=== PATIENT | male | born 1975 | race Caucasian/White ===

== ENCOUNTER 2024-02-25 22:41 | Emergency (ER) | payer OTHER, SELFPAY ==
[2024-02-25 22:46] VITALS: BP 136/79; PULSE 77; RESP 16; TEMP 36.6; O2SAT 97; BMI 29.0
--- NOTE | 2024-02-25 22:46 | ED.PSYCH ---
HPI - Psych <Paty Cummins MD - Last Filed: 02/26/24 18:17> General Chief Complaint: Psychiatric Symptoms Stated Complaint: DIOGENES Time Seen by Provider: 02/25/24 22:42 History of Present Illness HPI Narrative: 48-year-old male presents with law enforcement for psychiatric evaluation under DIOGENES. History is limited and mostly provided per law enforcement as patient does not want to provide any history and states ?I just do not want to talk about it?. Law enforcement states that for the last 3 days [place] has [place]. This evening he texted multiple people that he was going [place] to kill himself. When they arrived at the bridge they found him hanging off the side of the bridge. They were able to get him to safety. Patient stated that he wanted to drive himself to the ER, however based on patient's condition law enforcement decided to bring him in under DIOGENES. Patient states ?I just want to go home?. He does not want to go to psychiatric facilities at this time. He refuses to answer when asked if he still wants to harm himself. Related Data Home Medications Medication Instructions Recorded Confirmed bupropion HCl 150 mg 24 hr tablet, 300 mg PO DAILY 02/26/24 02/26/24 extended release losartan 100 mg tablet 100 mg PO DAILY 02/26/24 02/26/24 lurasidone 40 mg tablet 40 mg PO DAILY 02/26/24 02/26/24 metformin 500 mg tablet,extended 500 mg PO DAILY 02/26/24 02/26/24 release 24 hr methylphenidate HCl 27 mg 27 mg PO QAM 02/26/24 02/26/24 tablet,extended release 24 hr modafinil 200 mg tablet 400 mg PO DAILY 02/26/24 02/26/24 propranolol 10 mg tablet 10 mg PO DAILY 02/26/24 02/26/24 quetiapine 100 mg tablet 100 mg PO DAILY 02/26/24 02/26/24 rosuvastatin 10 mg tablet 10 mg PO ONCE PM 02/26/24 02/26/24 Allergies Allergy/AdvReac Type Severity Reaction Status Date / Time No Known Drug Allergies Allergy Verified 02/25/24 22:58 Exam <Paty Cummins MD - Last Filed: 02/26/24 18:17> Initial Vital Signs Initial Vital Signs: Vital Signs Temperature 97.9 F 02/25/24 22:46 Pulse Rate 77 02/25/24 22:46 Respiratory Rate 16 02/25/24 22:46 Blood Pressure 136/79 02/25/24 22:46 Pulse Oximetry 97 02/25/24 22:46 Oxygen Delivery Method Room Air 02/25/24 22:46 Const: Awake, alert, no acute distress, nontoxic appearing Cardiac: regular rate, regular rhythm RESP: unlabored, clear bilaterally, no wheezing Skin: Warm, Dry, intact, no rashes Neuro: AO x3, CN II-XII grossly intact, moves all extremities Psych: Flat affect, poor eye contact, suicidal (per reports of law enforcement). <Noe Womack MD - Last Filed: 02/26/24 18:55> Initial Vital Signs Initial Vital Signs: Vital Signs Temperature 97.9 F 02/25/24 22:46 Pulse Rate 77 02/25/24 22:46 Respiratory Rate 16 02/25/24 22:46 Blood Pressure 136/79 02/25/24 22:46 Pulse Oximetry 97 02/25/24 22:46 Oxygen Delivery Method Room Air 02/25/24 22:46 Course <Paty Cummins MD - Last Filed: 02/26/24 18:17> Orders Ordered: Discontinued Medications Metformin HCl (Metformin Hcl 500 Mg Tablet) 500 mg PO NOW ONE Stop: 02/26/24 01:42 Last Admin: 02/26/24 01:55 Dose: 500 mg Documented By: JOHN Quetiapine Fumarate (Quetiapine 25 Mg Tablet) 100 mg PO NOW ONE Stop: 02/26/24 01:41 Last Admin: 02/26/24 01:55 Dose: 100 mg Documented By: JOHN Vital Signs Vital signs: Vital Signs - 8 hr 02/26/24 13:19 Pulse Rate 94 H Respiratory Rate 19 Blood Pressure 126/70 Pulse Oximetry 98 Oxygen Delivery Method Room Air <Noe Womack MD - Last Filed: 02/26/24 18:55> Orders Ordered: Discontinued Medications Metformin HCl (Metformin Hcl 500 Mg Tablet) 500 mg PO NOW ONE Stop: 02/26/24 01:42 Last Admin: 02/26/24 01:55 Dose: 500 mg Documented By: JOHN Quetiapine Fumarate (Quetiapine 25 Mg Tablet) 100 mg PO NOW ONE Stop: 02/26/24 01:41 Last Admin: 02/26/24 01:55 Dose: 100 mg Documented By: HNG Vital Signs Vital signs: Vital Signs - 8 hr 02/26/24 13:19 Pulse Rate 94 H Respiratory Rate 19 Blood Pressure 126/70 Pulse Oximetry 98 Oxygen Delivery Method Room Air MDM - Psych <Paty Cummins MD - Last Filed: 02/26/24 18:17> Lab Data 02/25/24 22:55 02/25/24 22:55 Labs: Lab Results 02/25/24 02/25/24 02/26/24 Range/Units 22:50 22:55 04:48 WBC 8.0 (4.5-11.0) X10^3/uL RBC 5.26 (4.5-5.9) X10^6/uL Hgb 15.5 (13.5-17.5) g/dL Hct 46.2 (41-53) % MCV 87.7 (80-100) fL MCH 29.5 (26-34) PG MCHC 33.6 (30-36) % RDW 13.0 (11.6-14.8) % Plt Count 252 (150-400) X10^3/uL Neut % (Auto) 59.5 (50-75) % Lymph % (Auto) 24.2 L (25-40) % [place] % (Auto) 12.6 (3-14) % Eos % (Auto) 2.9 (2-4) % Baso % (Auto) 0.8 (0-2) % Neut # (Auto) 4800 (9530-7645) /uL Lymph # (Auto) 1900 (4681-6131) /uL [place] # (Auto) 1000 H (0-900) /uL Eos # (Auto) 200 (0-450) /uL Baso # (Auto) 100 (0-100) /uL Sodium 139 (137-145) mmol/L Potassium 4.1 (3.4-5.1) mmol/L Chloride 105 (98-107) mmol/L Carbon Dioxide 26 (22-32) mmol/L BUN 20 (9-20) mg/dL Creatinine 1.21 (0.66-1.25) mg/dL Estimated GFR > 60 (>60) mL/min BUN/Creatinine Ratio 16.5 (6-22) Glucose 120 H (70-100) mg/dL Calcium 9.6 (8.4-10.2) mg/dL Total Bilirubin 0.7 (0.2-1.3) mg/dL AST 33 (17-59) IU/L ALT 23 (<50) IU/L Alkaline Phosphatase 82 (38-126) U/L Total Creatine Kinase 150 (55-170) U/L Troponin I < 0.012 (0.01-0.034) ng/mL Total Protein 7.5 (6.3-8.2) g/dL Albumin 4.5 (3.5-5.0) g/dL Globulin 3.0 (1.7-4.1) g/dL Albumin/Globulin Ratio 1.5 (1.0-2.8) Urine Color Yellow Urine Appearance Clear Urine pH 5.5 (4.5-8.0) Ur Specific [place] 1.025 (1.000-1.035) Urine Protein Negative (Negative) Urine Glucose (UA) Trace H (Negative) g/dL Urine Ketones Trace H (NEGATIVE) Urine Occult Blood Negative (Negative) Urine Nitrate Negative (Negative) Urine Bilirubin Negative (NEGATIVE) Urine Urobilinogen 0.2 (0.2) E.U./dL Ur Leukocyte Esterase Negative (NEGATIVE) Urine RBC 0-1/hpf (0-5/HPF) Urine WBC None seen (0-5/HPF) Ur Squamous Epith Cells 0-1 /hpf (0-5/HPF) Urine Bacteria Occasional (0-1) (None) Urine Mucus 3+ H (Negative) Ur Culture Indicated? Cult not indicated Vol Urine Centrifuged 10ml (spun) Salicylates < 1.0 (<20) mg/dL U Opiates 300ng/mL cut (Negative) Ur Oxycodone Screen (Negative) Urine Methadone Screen (Negative) Acetaminophen < 10 (10-30) ug/mL Ur Barbiturates Screen (Negative) U Tricyclic Antidepress (Negative) Ur Phencyclidine Scrn (Negative) Ur Amphetamines Screen (Negative) U Methamphetamines Scrn (Negative) Ur MDMA Scrn (Ecstasy) (Negative) U Benzodiazepines Scrn (Negative) Urine Cocaine Screen (Negative) U Marijuana (THC) Screen (Negative) Urine Specific [place] (Normal) Ethyl Alcohol < 10 ( - 10) mg/dL Ur Creatinine (Normal) SARS-CoV-2 (PCR) Negative (Negative) 02/26/24 Range/Units 04:50 WBC (4.5-11.0) X10^3/uL RBC (4.5-5.9) X10^6/uL Hgb (13.5-17.5) g/dL Hct (41-53) % MCV (80-100) fL MCH (26-34) PG MCHC (30-36) % RDW (11.6-14.8) % Plt Count (150-400) X10^3/uL Neut % (Auto) (50-75) % Lymph % (Auto) (25-40) % [place] % (Auto) (3-14) % Eos % (Auto) (2-4) % Baso % (Auto) (0-2) % Neut # (Auto) (4688-7598) /uL Lymph # (Auto) (5860-7776) /uL [place] # (Auto) (0-900) /uL Eos # (Auto) (0-450) /uL Baso # (Auto) (0-100) /uL Sodium (137-145) mmol/L Potassium (3.4-5.1) mmol/L Chloride (98-107) mmol/L Carbon Dioxide (22-32) mmol/L BUN (9-20) mg/dL Creatinine (0.66-1.25) mg/dL Estimated GFR (>60) mL/min BUN/Creatinine Ratio (6-22) Glucose (70-100) mg/dL Calcium (8.4-10.2) mg/dL Total Bilirubin (0.2-1.3) mg/dL AST (17-59) IU/L ALT (<50) IU/L Alkaline Phosphatase (38-126) U/L Total Creatine Kinase (55-170) U/L Troponin I (0.01-0.034) ng/mL Total Protein (6.3-8.2) g/dL Albumin (3.5-5.0) g/dL Globulin (1.7-4.1) g/dL Albumin/Globulin Ratio (1.0-2.8) Urine Color Urine Appearance Urine pH Normal (4.5-8.0) Ur Specific [place] (1.000-1.035) Urine Protein (Negative) Urine Glucose (UA) (Negative) g/dL Urine Ketones (NEGATIVE) Urine Occult Blood (Negative) Urine Nitrate (Negative) Urine Bilirubin (NEGATIVE) Urine Urobilinogen (0.2) E.U./dL Ur Leukocyte Esterase (NEGATIVE) Urine RBC (0-5/HPF) Urine WBC (0-5/HPF) Ur Squamous Epith Cells (0-5/HPF) Urine Bacteria (None) Urine Mucus (Negative) Ur Culture Indicated? Vol Urine Centrifuged Salicylates (<20) mg/dL U Opiates 300ng/mL cut Negative (Negative) Ur Oxycodone Screen Negative (Negative) Urine Methadone Screen Negative (Negative) Acetaminophen (10-30) ug/mL Ur Barbiturates Screen Negative (Negative) U Tricyclic Antidepress Positive H (Negative) Ur Phencyclidine Scrn Negative (Negative) Ur Amphetamines Screen Negative (Negative) U Methamphetamines Scrn Negative (Negative) Ur MDMA Scrn (Ecstasy) Negative (Negative) U Benzodiazepines Scrn Negative (Negative) Urine Cocaine Screen Negative (Negative) U Marijuana (THC) Screen Positive H (Negative) Urine Specific [place] Normal (Normal) Ethyl Alcohol ( - 10) mg/dL Ur Creatinine Normal (Normal) SARS-CoV-2 (PCR) (Negative) MDM Narrative Medical decision making narrative: Nontoxic appearing patient with suicidal gesture versus attempt. Law enforcement was able to share the text messages sent from the patient to his very slept ones stating that he was tired of fighting and planning on ending it all tonight. Refusing to discuss the events of tonight with me, states that he does not want to go to voluntary psychiatric treatment, but otherwise is cooperative with nursing staff instructions. Placed on high-risk precautions with one-to-one sitter. Patient requested his nightly medications, which include seroquel and lurasidone. Unfortunately we do not have lurasidone in our hospital. Offered risperidone as an alternative, patient declined stating that he had been on risperidone in the past and it did not seem to be working. Laboratory work is reviewed, unremarkable. Tox screens negative of salicylates, acetaminophen, alcohol. UDS positive for THC and tricyclic antidepressants. Patient has remained calm and cooperative in the exam room, but still refuses to discuss any of the events leading up to him coming to the emergency department last night. DCR dispatched for patient care. 0700 - DCR just arrived to ED to evaluate patient. Care of patient signed to Dr. Womack at this time. 02/26/2024 at 0700Vu. Sign-out from Dr. Cummins. 48-year-old male with possible history of schizophrenia, taking Seroquel and lurasidone, having suicidal ideation, texting others that [place], in fact was [place] the [place] by police, brought in for evaluation, reluctant to give history, no physical trauma obvious on exam, triage vitals unremarkable, UDS positive for TCA and cannabis, other screening labs unremarkable, medically cleared. DCR to consult. Anticipate transfer to inpatient psychiatric facility. Assumed interim care. 899, DCS evaluating, bed search in progress 1040, accepted for transfer to [facility], [facility] accepting. <Noe Womack MD - Last Filed: 02/26/24 18:55> Lab Data Labs: Lab Results 02/25/24 02/25/24 02/26/24 Range/Units 22:50 22:55 04:48 WBC 8.0 (4.5-11.0) X10^3/uL RBC 5.26 (4.5-5.9) X10^6/uL Hgb 15.5 (13.5-17.5) g/dL Hct 46.2 (41-53) % MCV 87.7 (80-100) fL MCH 29.5 (26-34) PG MCHC 33.6 (30-36) % RDW 13.0 (11.6-14.8) % Plt Count 252 (150-400) X10^3/uL Neut % (Auto) 59.5 (50-75) % Lymph % (Auto) 24.2 L (25-40) % [place] % (Auto) 12.6 (3-14) % Eos % (Auto) 2.9 (2-4) % Baso % (Auto) 0.8 (0-2) % Neut # (Auto) 4800 (8287-9286) /uL Lymph # (Auto) 1900 (6709-9376) /uL [place] # (Auto) 1000 H (0-900) /uL Eos # (Auto) 200 (0-450) /uL Baso # (Auto) 100 (0-100) /uL Sodium 139 (137-145) mmol/L Potassium 4.1 (3.4-5.1) mmol/L Chloride 105 (98-107) mmol/L Carbon Dioxide 26 (22-32) mmol/L BUN 20 (9-20) mg/dL Creatinine 1.21 (0.66-1.25) mg/dL Estimated GFR > 60 (>60) mL/min BUN/Creatinine Ratio 16.5 (6-22) Glucose 120 H (70-100) mg/dL Calcium 9.6 (8.4-10.2) mg/dL Total Bilirubin 0.7 (0.2-1.3) mg/dL AST 33 (17-59) IU/L ALT 23 (<50) IU/L Alkaline Phosphatase 82 (38-126) U/L Total Creatine Kinase 150 (55-170) U/L Troponin I < 0.012 (0.01-0.034) ng/mL Total Protein 7.5 (6.3-8.2) g/dL Albumin 4.5 (3.5-5.0) g/dL Globulin 3.0 (1.7-4.1) g/dL Albumin/Globulin Ratio 1.5 (1.0-2.8) Urine Color Yellow Urine Appearance Clear Urine pH 5.5 (4.5-8.0) Ur Specific [place] 1.025 (1.000-1.035) Urine Protein Negative (Negative) Urine Glucose (UA) Trace H (Negative) g/dL Urine Ketones Trace H (NEGATIVE) Urine Occult Blood Negative (Negative) Urine Nitrate Negative (Negative) Urine Bilirubin Negative (NEGATIVE) Urine Urobilinogen 0.2 (0.2) E.U./dL Ur Leukocyte Esterase Negative (NEGATIVE) Urine RBC 0-1/hpf (0-5/HPF) Urine WBC None seen (0-5/HPF) Ur Squamous Epith Cells 0-1 /hpf (0-5/HPF) Urine Bacteria Occasional (0-1) (None) Urine Mucus 3+ H (Negative) Ur Culture Indicated? Cult not indicated Vol Urine Centrifuged 10ml (spun) Salicylates < 1.0 (<20) mg/dL U Opiates 300ng/mL cut (Negative) Ur Oxycodone Screen (Negative) Urine Methadone Screen (Negative) Acetaminophen < 10 (10-30) ug/mL Ur Barbiturates Screen (Negative) U Tricyclic Antidepress (Negative) Ur Phencyclidine Scrn (Negative) Ur Amphetamines Screen (Negative) U Methamphetamines Scrn (Negative) Ur MDMA Scrn (Ecstasy) (Negative) U Benzodiazepines Scrn (Negative) Urine Cocaine Screen (Negative) U Marijuana (THC) Screen (Negative) Urine Specific [place] (Normal) Ethyl Alcohol < 10 ( - 10) mg/dL Ur Creatinine (Normal) SARS-CoV-2 (PCR) Negative (Negative) 02/26/24 Range/Units 04:50 WBC (4.5-11.0) X10^3/uL RBC (4.5-5.9) X10^6/uL Hgb (13.5-17.5) g/dL Hct (41-53) % MCV (80-100) fL MCH (26-34) PG MCHC (30-36) % RDW (11.6-14.8) % Plt Count (150-400) X10^3/uL Neut % (Auto) (50-75) % Lymph % (Auto) (25-40) % [place] % (Auto) (3-14) % Eos % (Auto) (2-4) % Baso % (Auto) (0-2) % Neut # (Auto) (1479-2136) /uL Lymph # (Auto) (0454-8764) /uL [place] # (Auto) (0-900) /uL Eos # (Auto) (0-450) /uL Baso # (Auto) (0-100) /uL Sodium (137-145) mmol/L Potassium (3.4-5.1) mmol/L Chloride (98-107) mmol/L Carbon Dioxide (22-32) mmol/L BUN (9-20) mg/dL Creatinine (0.66-1.25) mg/dL Estimated GFR (>60) mL/min BUN/Creatinine Ratio (6-22) Glucose (70-100) mg/dL Calcium (8.4-10.2) mg/dL Total Bilirubin (0.2-1.3) mg/dL AST (17-59) IU/L ALT (<50) IU/L Alkaline Phosphatase (38-126) U/L Total Creatine Kinase (55-170) U/L Troponin I (0.01-0.034) ng/mL Total Protein (6.3-8.2) g/dL Albumin (3.5-5.0) g/dL Globulin (1.7-4.1) g/dL Albumin/Globulin Ratio (1.0-2.8) Urine Color Urine Appearance Urine pH Normal (4.5-8.0) Ur Specific [place] (1.000-1.035) Urine Protein (Negative) Urine Glucose (UA) (Negative) g/dL Urine Ketones (NEGATIVE) Urine Occult Blood (Negative) Urine Nitrate (Negative) Urine Bilirubin (NEGATIVE) Urine Urobilinogen (0.2) E.U./dL Ur Leukocyte Esterase (NEGATIVE) Urine RBC (0-5/HPF) Urine WBC (0-5/HPF) Ur Squamous Epith Cells (0-5/HPF) Urine Bacteria (None) Urine Mucus (Negative) Ur Culture Indicated? Vol Urine Centrifuged Salicylates (<20) mg/dL U Opiates 300ng/mL cut Negative (Negative) Ur Oxycodone Screen Negative (Negative) Urine Methadone Screen Negative (Negative) Acetaminophen (10-30) ug/mL Ur Barbiturates Screen Negative (Negative) U Tricyclic Antidepress Positive H (Negative) Ur Phencyclidine Scrn Negative (Negative) Ur Amphetamines Screen Negative (Negative) U Methamphetamines Scrn Negative (Negative) Ur MDMA Scrn (Ecstasy) Negative (Negative) U Benzodiazepines Scrn Negative (Negative) Urine Cocaine Screen Negative (Negative) U Marijuana (THC) Screen Positive H (Negative) Urine Specific [place] Normal (Normal) Ethyl Alcohol ( - 10) mg/dL Ur Creatinine Normal (Normal) SARS-CoV-2 (PCR) (Negative) MDM Narrative Medical decision making narrative: Nontoxic appearing patient with suicidal gesture versus attempt. Law enforcement was able to share the text messages sent from the patient to his very slept ones stating that he was tired of fighting and planning on ending it all tonight. Refusing to discuss the events of tonight with me, states that he does not want to go to voluntary psychiatric treatment, but otherwise is cooperative with nursing staff instructions. Placed on high-risk precautions with one-to-one sitter. Patient requested his nightly medications, which include seroquel and lurasidone. Unfortunately we do not have lurasidone in our hospital. Offered risperidone as an alternative, patient declined stating that he had been on risperidone in the past and it did not seem to be working. Laboratory work is reviewed, unremarkable. Tox screens negative of salicylates, acetaminophen, alcohol. UDS positive for THC and tricyclic antidepressants. Patient has remained calm and cooperative in the exam room, but still refuses to discuss any of the events leading up to him coming to the emergency department last night. DCR dispatched for patient care. 02/26/2024 at 0700, Vu. Sign-out from Dr. Cummins. 48-year-old male with possible history of schizophrenia, taking Seroquel and lurasidone, having suicidal ideation, texting others that [place] might [place], in fact was [place] the [place] by police, brought in for evaluation, reluctant to give history, no physical trauma obvious on exam, triage vitals unremarkable, UDS positive for TCA and cannabis, other screening labs unremarkable, medically cleared. DCR to consult. Anticipate transfer to inpatient psychiatric facility. Assumed interim care. 0900, DCS evaluating, bed search in progress 1040, accepted for transfer to [facility], [facility] accepting. Critical Care Time <Noe Womack MD - Last Filed: 02/26/24 18:55> Critical Care Time Critical Care Time: Yes Total Critical Care Time: 35 Attestation: The high probability of a clinically significant, sudden or life threatening deterioration of the [psychiatric, psychosocial, metabolic] system(s) required my full and direct attention, intervention and personal management. The aggregate critical care time was [35] minutes. This time is in addition to time spent performing reported procedures but includes the following: [x] Data Review and interpretation [x] Patient assessment and monitoring of vital signs [x] Documentation [x] Medication orders and management Discharge Plan Departure Patient Disposition: Xfer Psychiatric Hosp Clinical Impression: Suicidal ideation, History of bipolar disorder Prescriptions: No Action quetiapine 100 mg tablet 100 mg PO DAILY propranolol 10 mg tablet 10 mg PO DAILY modafinil 200 mg tablet 400 mg PO DAILY losartan 100 mg tablet 100 mg PO DAILY metformin 500 mg tablet extended release 24 hr 500 mg PO DAILY methylphenidate HCl 27 mg tablet extended release 24hr 27 mg PO QAM rosuvastatin 10 mg tablet 10 mg PO ONCE PM bupropion HCl 150 mg tablet extended release 24 hr 300 mg PO DAILY lurasidone 40 mg tablet 40 mg PO DAILY
[2024-02-25 23:02] LABS: Add Manual Diff / Slide Review NO; Basophils Absolute Auto 100 /uL (0-100); Basophils Percent Auto 0.8 % (0-2); Eosinophils Absolute Auto 200 /uL (0-450); Eosinophils Percent Auto 2.9 % (2-4); Hematocrit 46.2 % (41-53); Hemoglobin 15.5 g/dL (13.5-17.5); Lymphocytes Absolute Auto 1900 /uL (1100-4500); Lymphocytes Percent Auto 24.2 % (25-40); Mean Corpuscular HGB Conc 33.6 % (30-36); Mean Corpuscular Hemoglobin 29.5 PG (26-34); Mean Corpuscular Volume 87.7 fL (80-100); Monocytes Absolute Auto 1000 /uL (0-900); Monocytes Percent Auto 12.6 % (3-14); Neutrophils Absolute Auto 4800 /uL (1500-7000); Neutrophils Percent Auto 59.5 % (50-75); Platelet Count 252 X10^3/uL (150-400); Red Blood Cell Count 5.26 X10^6/uL (4.5-5.9)
--- NOTE | 2024-02-25 23:02 | PC.NURSE ---
LINE CLEARANCE FOREMAN Note: Patient was asked if it would be okay to do an EKG, patient initally shook his head no. As I turned around to walk out of the room the patient asked would that help me get out of here soon? I told the patient that I was unsure if that would help him leave quicker but that the EKG is a protocol that we do that was ordered by the Doctor. The patient then said I don't want to be here. I reminded him that it is okay for him to refuse the EKG and the patient stated I don't want it. His nurse/provider was notified.
[2024-02-25 23:13] LABS: COVID19 -Nasal RAPID Negative (Negative)
[2024-02-25 23:18] LABS: Acetaminophen < 10 ug/mL (10-30); Alanine Aminotransferase 23 IU/L (<50); Albumin 4.5 g/dL (3.5-5.0); Albumin Globulin Ratio 1.5 (1.0-2.8); Alkaline Phosphatase 82 U/L (38-126); Aspartate Aminotransferase 33 IU/L (17-59); BUN Creatinine Ratio 16.5 (6-22); Bilirubin Total 0.7 mg/dL (0.2-1.3); Blood Urea Nitrogen 20 mg/dL (9-20); Calcium 9.6 mg/dL (8.4-10.2); Carbon Dioxide 26 mmol/L (22-32); Chloride 105 mmol/L (98-107); Creatine Kinase 150 U/L (55-170); Estimated Glomerular Filt Rate > 60 mL/min (>60); Ethanol (ETOH) < 10 mg/dL; Glucose 120 mg/dL (70-100); HEMOLYSIS < 15 (0-50); Potassium 4.1 mmol/L (3.4-5.1); Salicylate < 1.0 mg/dL (<20); Sodium 139 mmol/L (137-145); Total Protein 7.5 g/dL (6.3-8.2)
[2024-02-25 23:29] LABS: Troponin I < 0.012 ng/mL (0.01-0.034)
--- NOTE | 2024-02-25 23:44 | PC.NURSE ---
Addendum entered by Petra Shelley CNA 02/26/24 06:16: [employer] down for maintenance [id number], back charting for patient safely monitoring. 1:1 continued Addendum entered by Petra Shelley CNA 02/26/24 01:09: Pt stated that his ex and brother will be stopping by in the morning to continuous pickling line pickler his keys and wallet. 1:1 continued Addendum entered by Petra Shelley CNA 02/26/24 01:00: Pt on the phone with ex , pt stated I should have just done it, i should have just jumped. Pt become upset asking did you call the skin therapist? Pt now asking for ex to pay his rent. 1:1 continued Addendum entered by Petra Shelley CNA 02/26/24 00:44: pt informed that a UA was needed, pt stated if I dont have anything I can't give it to you. Pt offered water. Pt pacing back and forth in room, pt has taken a couple sips of water Original Note: This BEAD WORKER SEWING took over 1:1 at 2340. Reported was given from survey and mapping technician. Patient sitting on the side of bed, not interacting much.
--- NOTE | 2024-02-25 23:58 | PC.NURSE ---
Dr. Cummins medically cleared pt. Was asked to call to see if we absolutely needed the drug screen for dcr to be dispatched, Called [facility] and was told they would have to ask the DCR and would dispatch them if they didn't need it.
--- NOTE | 2024-02-26 00:05 | PC.NURSE ---
Text messages over past couple of days.
--- NOTE | 2024-02-26 00:16 | PC.NURSE ---
Received Call from [facility], stating he most likely would be denied placement without a drug screen.
--- NOTE | 2024-02-26 00:53 | PC.NURSE ---
Arnold called to check on patient, willing to talk to dcr to assist with DIOGENES. Kathleen Stock [phone], shadi (brother) [phone]
[2024-02-26] MEDS: QUETIAPINE 25 MG TABLET 100 MG PO (01:55)
[2024-02-26] MEDS: METFORMIN HCL 500 MG TABLET PO (01:55)
[2024-02-26 06:29] LABS: Appearance Urine UA CLEAR; Bilirubin Urine UA NEGATIVE (NEGATIVE); Color Urine UA YELLOW; Glucose Urine UA TRACE g/dL (Negative); Ketones Urine UA TRACE (NEGATIVE); Leukocyte Esterase Urine UA NEGATIVE (NEGATIVE); Nitrite Urine UA NEGATIVE (Negative); Occult Blood Urine UA NEGATIVE (Negative); Protein Urine UA NEGATIVE (Negative); Specific Gravity Urine UA 1.025 (1.000-1.035); Urobilinogen Urine UA 0.2 E.U./dL (0.2); pH Urine UA 5.5 (4.5-8.0)
[2024-02-26 06:33] LABS: Ur Creatinine Normal (Normal); Ur Specific Gravity Normal (Normal); Urine Amphetamines Negative (Negative); Urine Barbiturates Negative (Negative); Urine Benzodiazepines Negative (Negative); Urine Cocaine Negative (Negative); Urine MDMA Negative (Negative); Urine Methadone Negative (Negative); Urine Methamphetamines Negative (Negative); Urine Opiates Negative (Negative); Urine Oxycodone Negative (Negative); Urine Phencyclidine Negative (Negative); Urine THC Positive (Negative); Urine Tricyclic Antidepressant Positive (Negative); Urine pH Normal (Normal)
[2024-02-26 06:41] LABS: Bacteria Urine Occasional (0-1); Culture Indicated Urine Cult Not Indicated; Mucus Urine 3+ (Negative); RBC Urine 0-1/HPF (0-5/HPF); Squamous Epithelial Cell Urine 0-1 /HPF (0-5/HPF); Urine Volume 10mL (spun); WBC Urine None Seen (0-5/HPF)
--- NOTE | 2024-02-26 10:30 | PC.NURSE ---
With the patients permission his belongings were given to the patient ex .
[2024-02-26 13:19] VITALS: BP 126/70; PULSE 94; RESP 19; O2SAT 98
== END 2024-02-26 12:15 ==
PROVIDERS: Emergency Medicine; Emergency Provider Emergency Medicine
DX: R45.851 Suicidal ideations (principal); F31.9 Bipolar disorder, unspecified; F15.90 Other stimulant use, unspecified, uncomplicated; F12.90 Cannabis use, unspecified, uncomplicated; Z11.52 Encounter for screening for COVID-19
CPT/HCPCS: 36415; 80053; 80305; 80320; 80329; 81001; 82550; 84484; 85025; 87635; 99284; G0480